=== PATIENT | female | born 1970 | race Caucasian/White ===

== ENCOUNTER → 2016-12-26 | Outpatient (REF) | payer OTHER | LOC: M SFHCWAGY 15:08 | PROVIDERS: ATTEND Nurse Practitioner Family | DX: Z12.4 Encounter for screening for malignant neoplasm of cervix (principal) ==

== ENCOUNTER → 2016-12-26 | Outpatient (CLI) | payer BC, OTHER ==
--- NOTE | 2016-12-26 16:11 | REPMRS ---
Patient History The patient states she has not had a clinical breast exam in over a year. Patient had first child at age 33. Family history of breast cancer in maternal aunt at age 50 or over. Digital Woman Screen Mammo: December 26, 2016 - Exam #: [id number] Bilateral CC and MLO view(s) were taken. Technologist: Cheryl Orozco Technologist Prior study comparison: July 12, 2014, digital woman screen mammo performed at [facility]. May 13, 2013, digital woman screen mammo performed at [facility] to [facility]. FINDINGS: There are scattered fibroglandular densities. There has been no change in the appearance of the mammogram from the prior studies. There is a mild amount of residual fibroglandular tissue which is fairly symmetric. There is no interval development of dominant mass, architectural distortion, or clustered microcalcification suggestive of malignancy. Scattered lymph nodes are seen in the left axilla. No significant changes when compared with prior studies. ASSESSMENT: BI-RADS/ACR category 2 mammogram. Benign finding(s). Recommendation Routine screening mammogram in 1 year (for women over age 40). This mammogram was interpreted with the aid of an FDA-approved computer-aided dectection system. A. Negative x-ray reports should not delay biopsy if a dominant or clinically suspicious mass is present. B. Four to eight percent of cancers are not identified by mammography. C. Adenosis and dense breast may obscure an underlying neoplasm. Electronically Signed By: Mohit Miller MD 12/26/16 [id number]
== END ==
LOC: M WHC 14:24
PROVIDERS: ATTEND Nurse Practitioner Family
DX: Z12.31 Encounter for screening mammogram for malignant neoplasm of breast (principal)

== ENCOUNTER → 2017-07-22 | Outpatient (REF) | payer OTHER | LOC: M SFHCWAGY 12:47 | PROVIDERS: ATTEND Nurse Practitioner Family | DX: N76.0 Acute vaginitis (principal) ==

== ENCOUNTER → 2018-04-01 | Outpatient (CLI) | payer BC | LOC: M WHC 14:27 | DX: Z12.31 Encounter for screening mammogram for malignant neoplasm of breast (principal) ==

== ENCOUNTER → 2019-04-09 | Outpatient (REF) | payer OTHER ==
[2019-04-09 12:55] LABS: CHLAMYDIA DNA AMPLIFICATION NEGATIVE (NEGATIVE); GC DNA AMPLIFICATION NEGATIVE (NEGATIVE)
== END ==
LOC: M SFHCWAGY 10:35
PROVIDERS: ATTEND Nurse Practitioner Family
DX: L29.2 Pruritus vulvae (principal); R82.90 Unspecified abnormal findings in urine

== ENCOUNTER → 2019-06-11 | Outpatient (REF) | payer OTHER ==
[2019-06-13 14:10] LABS: HPV HYBRID CAPTURE II Negative (Negative)
== END ==
LOC: M SFHCWAGY 14:31
PROVIDERS: ATTEND Nurse Practitioner Family
DX: Z12.4 Encounter for screening for malignant neoplasm of cervix (principal)

== ENCOUNTER → 2019-07-15 | Outpatient (CLI) | payer BC ==
--- NOTE | 2019-07-15 13:39 | REPMRS ---
Patient History The patient states she had a clinical breast exam in 06/2019. Family history of breast cancer at age 50 or over in maternal aunt. 3D TOMOSYNTHESIS WAS PERFORMED. The Lani Dorado lifetime risk for breast cancer is 19.0%. Digital Woman Screen Mammo: July 15, 2019 - Exam #: [id number] Bilateral CC and MLO view(s) were taken. Technologist: Cheryl Orozco, Technologist Prior study comparison: April 01, 2018, digital woman screen mammo performed at [facility]. December 26, 2016, digital woman screen mammo performed at [facility]. FINDINGS: The breast tissue is heterogeneously dense. This may lower the sensitivity of mammography. There has been no change in the appearance of the mammogram from the prior studies. There is a moderate amount of residual fibroglandular tissue which is fairly symmetric. There is no interval development of dominant mass, areas of architectural distortion, or clustered microcalcification typical of malignancy. Assessment: BI-RADS/ACR category 1 mammogram. Negative Mammogram. Recommendation Routine screening mammogram in 1 year (for women over age 40). This mammogram was interpreted with the aid of an FDA-approved computer-aided dectection system. Electronically Signed By: Koby Harrison MD 07/15/19 [id number]
== END ==
LOC: M WHC 11:44
PROVIDERS: ATTEND Nurse Practitioner Family
DX: Z12.31 Encounter for screening mammogram for malignant neoplasm of breast (principal); Z80.3 Family history of malignant neoplasm of breast